=== PATIENT | male | born 1950 | race Asian ===

== ENCOUNTER 2022-08-22 14:18 | Emergency (ER) | payer OTHER ==
[2022-08-22 14:22] VITALS: BP 177/78; RESP 18; TEMP 97.6; BMI 28.9
[2022-08-22 14:38] VITALS: PULSE 72
[2022-08-22 16:42] LABS: BASO % 0.4 % (0-2.0); EOS % 0.8 % (0-4.5); LYMPH % 22.9 % (8-40); MCH 29.7 pg (25.7-33.7); MCHC 34.1 g/dl (32.0-35.9); MEAN PLT VOLUME 7.3 fl (7.5-11.1); MONO % 8.1 % (3.8-10.2); NEUT % 67.8 % (42.8-82.8); PLATELET COUNT 231 10^3/uL (134-434); RBC 4.71 M/mm3 (4.00-5.60); RDW 13.7 % (11.9-15.9); WHITE BLOOD COUNT 7.5 K/mm3 (4.0-10.0)
[2022-08-22 17:00] LABS: CALCIUM 8.8 mg/dL (8.5-10.1)
[2022-08-22 17:01] LABS: BLOOD UREA NITROGEN 12.8 mg/dL (7-18)
[2022-08-22 17:04] LABS: CREATININE 0.9 mg/dL (0.55-1.3)
== END 2022-08-22 18:38 | disposition home or self-care (01) ==
LOC: JER 14:18
DX: R04.0 Epistaxis (principal)
CPT/HCPCS: 36415; 71045-TC-FY; 80048; 84484; 85025; 93005; 93010; 99285-25